=== PATIENT | female | born 1940 | race Hispanic/Latino ===

== ENCOUNTER 2017-07-07 07:21 | Day surgery (SDC) | payer MEDICARE ==
[~2017-07-07] VITALS: Ht 160 cm; Wt 127.0 kg
[~2017-07-07 07:21] MED LIST: SODIUM CHLORIDE 0.9% 1000ML 1,000 ML IV ONE
[2017-07-07 07:44] VITALS: BP 190/59
[2017-07-07] MEDS ORDERED: FLUT1AER IH (08:23)
[2017-07-07] MEDS ORDERED: VITAMIN D2 (08:23)
[2017-07-07] MEDS ORDERED: VALS1TAB75 PO (08:23)
[2017-07-07] MEDS ORDERED: OMEP40CA37 PO (08:23)
[2017-07-07] MEDS ORDERED: [UNRECOGNIZED DRUG - OTHER] (08:23)
[2017-07-07] MEDS ORDERED: PIOG15TA66 PO (08:23)
[2017-07-07] MEDS ORDERED: LACTULOSE (08:23)
[2017-07-07] MEDS ORDERED: SUPER B COMPLEX (08:23)
[2017-07-07] MEDS ORDERED: ASPI-1197 PO (08:23)
[2017-07-07] MEDS ORDERED: ATOR10TA69 PO (08:23)
[2017-07-07] MEDS ORDERED: TIOT18CA3 IH (08:23)
[2017-07-07] MEDS ORDERED: MONTELUKAST PO (08:23)
[2017-07-07] MEDS ORDERED: LINA1TAB9 PO (08:23)
[2017-07-07] MEDS ORDERED: GAVAPENTIN PO (08:23)
[2017-07-07] MEDS ORDERED: ALBUHFA IH (08:23)
[2017-07-07] MEDS ORDERED: PROPOFOL 10 MG/ML 20ML VIAL IV ONE (08:26)
[2017-07-07 08:52] VITALS: BP 138/67
== END 2017-07-07 09:25 | disposition home or self-care (01) ==
LOC: ENDO 07:21 → DAH 07:21 → ENDO 09:25
PROVIDERS: ATTEND Internal Medicine Gastroenterology
DX: D12.2 Benign neoplasm of ascending colon (principal); K29.50 Unspecified chronic gastritis without bleeding; K44.9 Diaphragmatic hernia without obstruction or gangrene; M06.9 Rheumatoid arthritis, unspecified; I10 Essential (primary) hypertension; J45.909 Unspecified asthma, uncomplicated; E11.9 Type 2 diabetes mellitus without complications; M81.0 Age-related osteoporosis without current pathological fracture; K21.9 Gastro-esophageal reflux disease without esophagitis; E66.9 Obesity, unspecified; Z68.43 Body mass index [BMI] 50.0-59.9, adult; Z90.49 Acquired absence of other specified parts of digestive tract; Z98.890 Other specified postprocedural states; Z79.899 Other long term (current) drug therapy; Z79.84 Long term (current) use of oral hypoglycemic drugs; K64.9 Unspecified hemorrhoids
CPT/HCPCS: 43239; 45380; 82948 ×2; 88305; 93005; A4606; J2704; J7030